=== PATIENT | male | born 1960 | race Caucasian/White ===

== ENCOUNTER 2017-03-26 03:59 | Observation (INO) | payer OTHER ==
[~2017-03-26] VITALS: Ht 177.8 cm; Wt 67.6 kg
[2017-03-26 04:30] LABS: HEMATOCRIT 44.2 % (38.0-50.0); HEMOGLOBIN 15.3 G/DL (12.5-16.6); MCH 32.6 PG (29.0-34.0); MCHC 34.6 G/DL (30.0-36.0); MCV 94.2 FL (86-99); PLATELET COUNT 214 K/uL (156-360); RBC DIS.WIDTH-CV 12.1 % (11.8-14.6); RED BLOOD COUNT 4.69 M/uL (4.00-5.50); WHITE BLOOD COUNT 15.2 K/uL (4.1-10.2)
[2017-03-26 04:40] LABS: CHLORIDE 105 mEq/L (99-109); POTASSIUM 4.5 mEq/L (3.7-5.4); SODIUM 138 mEq/L (136-147)
[2017-03-26 04:42] LABS: GLUCOSE 109 mg/dL (70-99)
[2017-03-26 04:46] LABS: CREATININE 0.8 mg/dL (0.6-1.3); UREA NITROGEN (BUN) 10 mg/dL (9-23)
[2017-03-26 04:48] LABS: GFR ESTIMATE (CALCULATED) > 59 mL/min/ (58.99-99999)
[2017-03-26 04:53] LABS: TROP-I INTERPRETATION NEGATIVE; TROPONIN-I 0.04 ng/mL (0.0-0.30)
[2017-03-26 09:20] LABS: MAGNESIUM 2.3 mg/dL (1.3-2.7)
[2017-03-26 09:29] VITALS: BP 117/62
[2017-03-26] MEDS ORDERED: PROAIR HFA8.5 GM IH (10:49)
[2017-03-26 11:41] VITALS: BP 118/57
[2017-03-26 12:33] LABS: TROP-I INTERPRETATION NEGATIVE; TROPONIN-I 0.24 ng/mL (0.0-0.30)
[2017-03-26 16:20] VITALS: BP 137/68
[2017-03-26 16:54] LABS: TROP-I INTERPRETATION NEGATIVE; TROPONIN-I 0.24 ng/mL (0.0-0.30)
[2017-03-26 21:00] VITALS: BP 126/59
[2017-03-27 03:27] VITALS: BP 133/66
[2017-03-27 05:54] LABS: HEMATOCRIT 38.7 % (38.0-50.0); HEMOGLOBIN 13.1 G/DL (12.5-16.6); MCH 32.3 PG (29.0-34.0); MCHC 33.9 G/DL (30.0-36.0); MCV 95.3 FL (86-99); PLATELET COUNT 181 K/uL (156-360); RBC DIS.WIDTH-CV 12.3 % (11.8-14.6); RBC DIS.WIDTH-SD 43.2 % (39-53); RED BLOOD COUNT 4.06 M/uL (4.00-5.50); WHITE BLOOD COUNT 19.7 K/uL (4.1-10.2)
[2017-03-27 06:26] LABS: CHLORIDE 104 MEQ/L (99-109); CREATININE 0.5 MG/DL (0.6-1.3); GFR ESTIMATE (CALCULATED) > 59 mL/min/ (58.99-99999); GLUCOSE 156 mg/dL (70-99); SODIUM 138 MEQ/L (136-147); UREA NITROGEN (BUN) 10 mg/dL (9-23)
[2017-03-27 07:10] VITALS: BP 116/66
[2017-03-27 11:53] VITALS: BP 123/56
[2017-03-27 13:59] LABS: TROP-I INTERPRETATION NEGATIVE; TROPONIN-I 0.07 ng/mL (0.0-0.30)
[2017-03-27 15:54] VITALS: BP 138/65
[2017-03-27 20:00] VITALS: BP 119/76
[2017-03-27 23:39] VITALS: BP 121/60
[2017-03-28 04:37] VITALS: BP 118/59
[2017-03-28 09:15] VITALS: BP 134/72
[2017-03-28] MEDS ORDERED: ADVAIR HFA120 INHALA IH (10:39)
[2017-03-28] MEDS ORDERED: Thiamine,Vitamin B1 PO (10:39)
[2017-03-28] MEDS ORDERED: PREDNISONE10 MG PO (10:39)
[2017-03-28] MEDS ORDERED: THERAGRAN1 TABLET PO (10:39)
[2017-03-28] MEDS ORDERED: FOLIC ACID1 MG PO (10:39)
[2017-03-28 11:26] VITALS: BP 125/70
== END 2017-03-28 15:00 | disposition home or self-care (01) ==
LOC: EME 03:59 → EDBD 03:59 → EDOF 07:48 → ENRESERV 07:50 → 5WEST 08:50 → ENPENDDIS 03-28 → 5WEST 03-28 15:00
PROVIDERS: Hospitalist; Internal Medicine
DX: J44.1 Chronic obstructive pulmonary disease with (acute) exacerbation (principal); R07.9 Chest pain, unspecified; F10.239 Alcohol dependence with withdrawal, unspecified; F17.200 Nicotine dependence, unspecified, uncomplicated; I47.1 Supraventricular tachycardia
CPT/HCPCS: 71020; 71275; 80048; 83735; 84484; 85027; 93005; 93306; 94640; 94640 76; 94799; 99202; 99281; 99285; G0378; J0696; J1100; J1650; J2270; J2930; J7030; J7644